=== PATIENT | male | born 1990 | race Two or more races ===

== ENCOUNTER 2021-11-26 23:44 | Emergency (ER) | payer MEDICAID, OTHER ==
[2021-11-27 00:08] VITALS: BP 113/71
== END 2021-11-27 00:30 | disposition left against medical advice (07) ==
LOC: ER 23:44
DX: S81.831A Puncture wound without foreign body, right lower leg, initial encounter (principal); Z53.21 Procedure and treatment not carried out due to patient leaving prior to being seen by health care provider; W22.8XXA Striking against or struck by other objects, initial encounter; Y93.01 Activity, walking, marching and hiking; Y92.89 Other specified places as the place of occurrence of the external cause; Y99.8 Other external cause status

== ENCOUNTER 2021-12-01 01:29 | Emergency (ER) | payer MEDICAID ==
[~2021-12-01] VITALS: Ht 180.3 cm; Wt 77.4 kg
[2021-12-01 08:14] VITALS: BP 119/68
== END 2021-12-01 08:18 | disposition still patient (30) ==
LOC: ER 01:29
DX: R60.0 Localized edema (principal)
CPT/HCPCS: 93971

== ENCOUNTER 2021-12-11 06:21 | Emergency (ER) | payer MEDICAID ==
[~2021-12-11] VITALS: Ht 180.3 cm; Wt 76.7 kg
[2021-12-11 07:36] VITALS: BP 130/76
[2021-12-11] MEDS ORDERED: cefTRIAXone SOD 1,000 MG VL IM ONE (08:30)
[2021-12-11] MEDS ORDERED: SULF800T7 PO (08:36)
[2021-12-11] MEDS ORDERED: IBUP800T27 PO (08:36)
== END 2021-12-11 09:43 | disposition home or self-care (01) ==
LOC: ER 06:21
DX: L97.519 Non-pressure chronic ulcer of other part of right foot with unspecified severity (principal); Z20.822 Contact with and (suspected) exposure to COVID-19
CPT/HCPCS: 36415; 87426; 96372; 99283; J0696

== ENCOUNTER 2021-12-20 09:52 | Emergency (ER) | payer MEDICAID ==
[~2021-12-20] VITALS: Ht 180.3 cm; Wt 90.0 kg
[~2021-12-20 09:52] MED LIST: IBUP800T27 PO; SULF800T7 PO
[2021-12-20 10:02] VITALS: BP 123/77
[2021-12-20 12:02] LABS: Basophils # (auto) 0.1 10 ^3/uL (0-0.2); Basophils % (auto) 0.9 % (0.0-2.0); Eosinophils # (auto) 0.2 10 ^3/uL (0-0.8); Eosinophils % (auto) 2.1 % (0.0-7.0); Hematocrit 39.1 % (41.0-53.0); Hemoglobin 12.9 g/dL (13.5-17.5); Lymphocytes # (auto) 1.7 10 ^3/uL (0.4-5.4); Lymphocytes % (auto) 18.9 % (10.0-50.0); Mean Corpuscular Hemoglobin 29.7 pg (28.0-32.0); Mean Corpuscular Hgb Conc. 33.1 g/dL (32.0-36.0); Mean Corpuscular Volume 89.8 fL (80.0-100.0); Monocytes # (auto) 0.7 10 ^3/uL (0-1.3); Monocytes % (auto) 7.4 % (0.0-12.0); Neutrophils # (auto) 6.3 10 ^3/uL (1.6-8.6); Neutrophils % (auto) 70.7 % (37.0-80.0); Red Blood Cells 4.35 10^6/uL (4.5-5.90); Red Cell Distribution Width 12.6 % (11.8-14.3); White Blood Cell 8.9 10^3/uL (4.4-10.8)
[2021-12-20 12:29] LABS: Albumin 3.3 g/dL (3.4-5.0); Calcium 8.6 mg/dL (8.5-10.1); Potassium 3.5 mmol/L (3.5-5.1)
[2021-12-20 12:38] LABS: Bilirubin, Total 0.7 mg/dL (0.2-1.0); CRP High Sensitivity 4.14 mg/dL (< 0.3); Total Protein 7.4 g/dL (6.4-8.2)
[2021-12-20 13:52] LABS: BUN/Creatinine Ratio 16.7
== END 2021-12-20 17:46 | disposition left against medical advice (07) ==
LOC: ER 09:52
DX: L97.419 Non-pressure chronic ulcer of right heel and midfoot with unspecified severity (principal); Z53.29 Procedure and treatment not carried out because of patient's decision for other reasons
CPT/HCPCS: 36415; 73630; 80053; 83605; 85025; 85652; 86141; 99284; J7030

== ENCOUNTER 2021-12-27 04:02 | Inpatient (IN) | payer MEDICAID ==
[~2021-12-27] VITALS: Ht 180.3 cm; Wt 80.0 kg
[2021-12-27 05:30] LABS: Basophils # (auto) 0.1 10 ^3/uL (0-0.2); Basophils % (auto) 1.3 % (0.0-2.0); Eosinophils # (auto) 0.2 10 ^3/uL (0-0.8); Eosinophils % (auto) 1.5 % (0.0-7.0); Hematocrit 37.6 % (41.0-53.0); Hemoglobin 12.4 g/dL (13.5-17.5); Lymphocytes # (auto) 1.6 10 ^3/uL (0.4-5.4); Lymphocytes % (auto) 15.4 % (10.0-50.0); Mean Corpuscular Hemoglobin 29.9 pg (28.0-32.0); Mean Corpuscular Hgb Conc. 33.1 g/dL (32.0-36.0); Mean Corpuscular Volume 90.5 fL (80.0-100.0); Monocytes # (auto) 0.7 10 ^3/uL (0-1.3); Neutrophils # (auto) 7.8 10 ^3/uL (1.6-8.6); Neutrophils % (auto) 74.8 % (37.0-80.0); Nucleated Red Blood Cells % 0.1 %; Red Blood Cells 4.15 10^6/uL (4.5-5.90); Red Cell Distribution Width 12.6 % (11.8-14.3); White Blood Cell 10.5 10^3/uL (4.4-10.8)
[2021-12-27 05:50] LABS: Albumin 3.3 g/dL (3.4-5.0); Calcium 8.4 mg/dL (8.5-10.1); Potassium 3.8 mmol/L (3.5-5.1)
[2021-12-27 05:58] LABS: BUN/Creatinine Ratio 17.6; Bilirubin, Total 0.5 mg/dL (0.2-1.0); CRP High Sensitivity 2.28 mg/dL (< 0.3); Total Protein 7.1 g/dL (6.4-8.2)
[2021-12-27] MEDS ORDERED: PIPERACILLIN-TAZOB 3.375GM 100 ML IV ONE (08:00)
[2021-12-27] MEDS ORDERED: SODIUM CHLORIDE 0.9% 500 ML IV ONE (08:00)
[2021-12-27] MEDS ORDERED: SODIUM CHLORIDE 0.9% 1,000 ML IV ONE (08:00)
[2021-12-27 12:19] LABS: Urine Bacteria NONE SEEN /hpf (None Seen); Urine Blood Negative /uL (Negative); Urine Mucus FEW (None Seen); Urine Specific Gravity 1.032 (1.001-1.035); Urine WBC <1 /hpf (0 - 3)
[2021-12-27] MEDS ORDERED: DOCUSATE SOD 100 MG CAP PO PRN (12:30)
[2021-12-27] MEDS: SODIUM CHLORIDE 0.9% 1,000 ML IV SCH (12:30)
[2021-12-27] MEDS ORDERED: ACETAMINOPHEN 325 MG TAB PO PRN (12:30)
[2021-12-27] MEDS ORDERED: ONDANSETRON HCL 4 MG/2 ML VIAL IV PRN (12:30)
[2021-12-27] MEDS ORDERED: MORPHINE SULFATE INJ 2 MG/ml SYRG IV PRN (12:30)
[2021-12-27] MEDS: PIPERACILLIN-TAZOB 3.375GM 100 ML IV SCH ×2 (12:30→21:34)
[2021-12-27 16:23] VITALS: BP 116/60
[2021-12-27] MEDS ORDERED: NALOXONE HCL 0.4 MG/ML VIAL IV ONE ×2 (17:30→18:00)
[2021-12-27 18:57] LABS: Amphetamine Screen, Urine POSITIVE (NEGATIVE); Barbiturate Scree,Urine NEGATIVE (NEGATIVE); Benzodiazephine Screen, Urine NEGATIVE (NEGATIVE); Cannabinoid Screen, Urine POSITIVE (NEGATIVE)
[2021-12-27 19:04] LABS: Cocaine Screen, Urine NEGATIVE (NEGATIVE); Opiate Scree,Urine NEGATIVE (NEGATIVE); Phencyclidine Screen, Urine NEGATIVE (NEGATIVE)
[2021-12-27 22:00] VITALS: BP 102/60
[2021-12-28] MEDS: PIPERACILLIN-TAZOB 3.375GM 100 ML IV SCH ×2 (04:40→11:55)
[2021-12-28 05:00] VITALS: BP 117/73
[2021-12-28] MEDS: SODIUM CHLORIDE 0.9% 1,000 ML IV SCH (05:49)
[2021-12-28] MEDS: ENOXAPARIN SOD 40 MG/0.4 ML SYRINGE SC SCH (08:57)
[2021-12-28 09:00] VITALS: BP 105/62
[2021-12-28 14:00] VITALS: BP 111/59
[2021-12-28 17:00] VITALS: BP 108/67
[2021-12-28] MEDS ORDERED: VANCOMYCIN PER PHARMACY 0 MG IV SCH (18:30)
[2021-12-28] MEDS: VANCOMYCIN 1GM/250ML 250 ML IV SCH (21:07)
[2021-12-28 22:00] VITALS: BP 114/69
[2021-12-29 05:00] VITALS: BP 103/61
[2021-12-29] MEDS: VANCOMYCIN 1GM/250ML 250 ML IV SCH (05:56)
[2021-12-29 06:21] LABS: BUN/Creatinine Ratio 29.8; Potassium 4.1 mmol/L (3.5-5.1)
[2021-12-29] MEDS: ENOXAPARIN SOD 40 MG/0.4 ML SYRINGE SC SCH (08:35)
[2021-12-29] MEDS: HYDROcodone-ACET 5/325MG TAB PO PRN ×2 (08:35→14:26)
[2021-12-29] MEDS ORDERED: cefTRIAXone 1GM/50ML D5W 50 ML IV SCH (09:00)
[2021-12-29] MEDS ORDERED: DAKINS QUARTER STR 0.125% (NaHypochlorite) 473 ML TOPICAL SOL TOP SCH (10:00)
[2021-12-29 13:00] VITALS: BP 98/55
== END 2021-12-29 14:40 | disposition left against medical advice (07) | DRG 383 ==
LOC: ER 04:02 → OVERFLOW 12:21 → WEST WING 16:04
PROVIDERS: ADMIT Internal Medicine; ATTEND Internal Medicine
DX: L03.115 Cellulitis of right lower limb (principal); L97.511 Non-pressure chronic ulcer of other part of right foot limited to breakdown of skin; F15.10 Other stimulant abuse, uncomplicated; Z53.29 Procedure and treatment not carried out because of patient's decision for other reasons; Z20.822 Contact with and (suspected) exposure to COVID-19; F12.10 Cannabis abuse, uncomplicated; Z72.0 Tobacco use; Z91.19 Patient's noncompliance with other medical treatment and regimen
CPT/HCPCS: 36415; 71046; 73700; 80048; 80053; 80307; 81001; 83735; 85025; 85652; 86141; 87040; 87077; 87186; 87205; 93005; 93971; 96361; 96365; G0378; J0696; J2543

== ENCOUNTER 2022-01-01 13:27 | Emergency (ER) | payer MEDICAID ==
[2022-01-02] MEDS ORDERED: PERCOT PO (03:46)
[2022-01-02] MEDS ORDERED: DOXY-340 PO (03:46)
[2022-01-02] MEDS ORDERED: CEPH-510 PO (10:13)
[2022-01-02] MEDS ORDERED: CLIN300C8 PO (10:13)
== END 2022-01-01 15:00 | disposition left against medical advice (07) ==
LOC: ER 13:27
DX: R22.41 Localized swelling, mass and lump, right lower limb (principal); Z53.21 Procedure and treatment not carried out due to patient leaving prior to being seen by health care provider

== ENCOUNTER 2022-01-01 15:28 | Emergency (ER) | payer MEDICAID ==
[2022-01-02] MEDS ORDERED: PERCOT PO (03:46)
[2022-01-02] MEDS ORDERED: DOXY-340 PO (03:46)
[2022-01-02] MEDS ORDERED: CEPH-510 PO (10:13)
[2022-01-02] MEDS ORDERED: CLIN300C8 PO (10:13)
== END 2022-01-01 18:47 | disposition left against medical advice (07) ==
LOC: ER 15:36
DX: S81.801D Unspecified open wound, right lower leg, subsequent encounter (principal); Z53.21 Procedure and treatment not carried out due to patient leaving prior to being seen by health care provider; X58.XXXD Exposure to other specified factors, subsequent encounter

== ENCOUNTER 2022-01-01 22:00 | Emergency (ER) | payer MEDICAID ==
[~2022-01-01] VITALS: Ht 180.3 cm; Wt 74.3 kg
[2022-01-02 03:21] VITALS: BP 109/70
[2022-01-02] MEDS ORDERED: PERCOT PO (03:46)
[2022-01-02] MEDS ORDERED: DOXY-340 PO (03:46)
[2022-01-02] MEDS ORDERED: CEPH-510 PO (10:13)
[2022-01-02] MEDS ORDERED: CLIN300C8 PO (10:13)
== END 2022-01-02 04:24 | disposition home or self-care (01) ==
LOC: ER 22:00
DX: L03.115 Cellulitis of right lower limb (principal); F12.10 Cannabis abuse, uncomplicated; F15.10 Other stimulant abuse, uncomplicated

== ENCOUNTER 2022-01-02 08:00 | Emergency (ER) | payer MEDICAID ==
[~2022-01-02] VITALS: Ht 180.3 cm; Wt 92.0 kg
[~2022-01-02 08:00] MED LIST changes: +DOXY-340 PO; +PERCOT PO
[2022-01-02 09:49] VITALS: BP 136/81
[2022-01-02] MEDS ORDERED: CEPH-510 PO (10:13)
[2022-01-02] MEDS ORDERED: CLIN300C8 PO (10:13)
[2022-01-02] MEDS ORDERED: cefTRIAXone SOD 1,000 MG VL IM ONE (10:15)
== END 2022-01-02 10:43 | disposition home or self-care (01) ==
LOC: ER 08:00
DX: L97.519 Non-pressure chronic ulcer of other part of right foot with unspecified severity (principal); L03.115 Cellulitis of right lower limb; F15.10 Other stimulant abuse, uncomplicated; F12.10 Cannabis abuse, uncomplicated; Z59.00 Homelessness unspecified; Z79.2 Long term (current) use of antibiotics; Z79.1 Long term (current) use of non-steroidal anti-inflammatories (NSAID); Z79.899 Other long term (current) drug therapy
CPT/HCPCS: 96372; 99283; J0696

== ENCOUNTER 2022-01-06 02:27 | Emergency (ER) | payer MEDICAID ==
[~2022-01-06] VITALS: Ht 180.3 cm; Wt 70.0 kg
[~2022-01-06 02:27] MED LIST changes: +CEPH-510 PO; +CLIN300C8 PO
[2022-01-06 07:47] LABS: Albumin 3.1 g/dL (3.4-5.0); Calcium 8.5 mg/dL (8.5-10.1); Potassium 3.9 mmol/L (3.5-5.1)
[2022-01-06 07:51] LABS: BUN/Creatinine Ratio 17.6; Bilirubin, Total 0.7 mg/dL (0.2-1.0); Total Protein 7.4 g/dL (6.4-8.2)
[2022-01-06 08:05] LABS: Basophils # (auto) 0.1 10 ^3/uL (0-0.2); Basophils % (auto) 0.6 % (0.0-2.0); Eosinophils # (auto) 0.2 10 ^3/uL (0-0.8); Eosinophils % (auto) 2.1 % (0.0-7.0); Hematocrit 37.2 % (41.0-53.0); Hemoglobin 12.3 g/dL (13.5-17.5); Lymphocytes # (auto) 1.5 10 ^3/uL (0.4-5.4); Lymphocytes % (auto) 13.8 % (10.0-50.0); Mean Corpuscular Hemoglobin 29.7 pg (28.0-32.0); Mean Corpuscular Hgb Conc. 33.1 g/dL (32.0-36.0); Mean Corpuscular Volume 89.7 fL (80.0-100.0); Monocytes % (auto) 8.6 % (0.0-12.0); Neutrophils # (auto) 8.4 10 ^3/uL (1.6-8.6); Neutrophils % (auto) 74.9 % (37.0-80.0); Nucleated Red Blood Cells % 0.1 %; Red Blood Cells 4.15 10^6/uL (4.5-5.90); Red Cell Distribution Width 12.9 % (11.8-14.3); White Blood Cell 11.2 10^3/uL (4.4-10.8)
[2022-01-06 10:04] LABS: Urine Bacteria FEW /hpf (None Seen); Urine Blood Negative /uL (Negative); Urine Mucus MODERATE (None Seen); Urine WBC 1 /hpf (0 - 3)
[2022-01-06 12:00] VITALS: BP 128/66
[2022-01-06] MEDS ORDERED: NAP500T PO (12:15)
[2022-01-06] MEDS ORDERED: GABA300C10 PO (12:15)
[2022-01-06] MEDS ORDERED: TRAM50TA2 PO (12:15)
== END 2022-01-06 12:27 | disposition home or self-care (01) ==
LOC: ER 02:27 → EDBD 02:27 → ER 12:27
DX: L97.519 Non-pressure chronic ulcer of other part of right foot with unspecified severity (principal); I89.0 Lymphedema, not elsewhere classified; F12.10 Cannabis abuse, uncomplicated; F15.10 Other stimulant abuse, uncomplicated; Z59.00 Homelessness unspecified
CPT/HCPCS: 36415; 80053; 81001; 85025

== ENCOUNTER 2022-01-19 07:29 | Emergency (ER) | payer MEDICAID ==
[~2022-01-19] VITALS: Ht 180.3 cm; Wt 79.5 kg
[~2022-01-19 07:29] MED LIST changes: +GABA300C10 PO; +NAP500T PO; +TRAM50TA2 PO
[2022-01-19 08:52] LABS: Hematocrit 37.9 % (41.0-53.0); Hemoglobin 12.8 g/dL (13.5-17.5); Mean Corpuscular Hemoglobin 29.7 pg (28.0-32.0); Mean Corpuscular Hgb Conc. 33.7 g/dL (32.0-36.0); Red Blood Cells 4.31 10^6/uL (4.5-5.90); White Blood Cell 9.2 10^3/uL (4.4-10.8)
[2022-01-19 08:57] LABS: Basophils % (manual) 0 (0.0-2.0); Blast Cells 0; Metamyelocytes % 0; Myelocytes % 0; Promyelocytes % 0; Reactive Lymphocytes 0
[2022-01-19 09:05] LABS: Albumin 3.3 g/dL (3.4-5.0); Calcium 8.7 mg/dL (8.5-10.1); Potassium 3.7 mmol/L (3.5-5.1)
[2022-01-19 09:08] LABS: BUN/Creatinine Ratio 18.4; Bilirubin, Total 0.4 mg/dL (0.2-1.0); Total Protein 7.8 g/dL (6.4-8.2)
[2022-01-19 09:33] LABS: Band Neutrophils % (manual) 1; Eosinophils % (manual) 4 (0-7); Lymphocytes % (manual) 11 (10.0-50.0); Monocytes % (manual) 8 (0-12)
[2022-01-19] MEDS ORDERED: cefTRIAXone SOD 1,000 MG VL IM ONE (09:45)
[2022-01-19 10:09] VITALS: BP 122/74
== END 2022-01-19 10:14 | disposition home or self-care (01) ==
LOC: ER 07:29
DX: I89.0 Lymphedema, not elsewhere classified (principal)
CPT/HCPCS: 36415; 80053; 82962; 85007; 85027; 96372; 99283; J0696

== ENCOUNTER 2022-01-30 22:13 | Inpatient (IN) | payer MEDICAID ==
[~2022-01-30] VITALS: Ht 180.3 cm; Wt 74.0 kg
[2022-01-30] MEDS ORDERED: IOHEXOL 350 MG/ML 100ML IJ ONE (23:54)
[2022-01-31 00:01] LABS: Basophils # (auto) 0.1 10 ^3/uL (0-0.2); Eosinophils # (auto) 0.3 10 ^3/uL (0-0.8); Lymphocytes # (auto) 1.8 10 ^3/uL (0.4-5.4); Neutrophils # (auto) 8.2 10 ^3/uL (1.6-8.6)
[2022-01-31 00:02] LABS: Basophils % (auto) 0.8 % (0.0-2.0); Eosinophils % (auto) 3.1 % (0.0-7.0); Hematocrit 37.3 % (41.0-53.0); Hemoglobin 12.5 g/dL (13.5-17.5); Lymphocytes % (auto) 15.9 % (10.0-50.0); Mean Corpuscular Hemoglobin 29.2 pg (28.0-32.0); Mean Corpuscular Hgb Conc. 33.6 g/dL (32.0-36.0); Mean Corpuscular Volume 86.9 fL (80.0-100.0); Monocytes # (auto) 0.7 10 ^3/uL (0-1.3); Monocytes % (auto) 6.7 % (0.0-12.0); Neutrophils % (auto) 73.5 % (37.0-80.0); Red Blood Cells 4.29 10^6/uL (4.5-5.90); Red Cell Distribution Width 12.8 % (11.8-14.3); White Blood Cell 11.1 10^3/uL (4.4-10.8)
[2022-01-31 00:22] LABS: Albumin 3.4 g/dL (3.4-5.0); Calcium 8.5 mg/dL (8.5-10.1); Potassium 4.1 mmol/L (3.5-5.1)
[2022-01-31 00:58] LABS: BUN/Creatinine Ratio 20.8; Bilirubin, Total 0.4 mg/dL (0.2-1.0); CRP High Sensitivity 3.85 mg/dL (< 0.3); Total Protein 7.5 g/dL (6.4-8.2)
[2022-01-31] MEDS ORDERED: VANCOMYCIN 1GM/250ML 250 ML IV ONE (05:45)
[2022-01-31] MEDS: PIPERACILLIN-TAZO 4.5GM 100 ML IV ONE ×2 (06:46→07:57)
[2022-01-31 16:44] LABS: Basophils # (auto) 0.1 10 ^3/uL (0-0.2); Basophils % (auto) 0.8 % (0.0-2.0); Eosinophils # (auto) 0.3 10 ^3/uL (0-0.8); Eosinophils % (auto) 4.3 % (0.0-7.0); Hematocrit 38.6 % (41.0-53.0); Hemoglobin 12.9 g/dL (13.5-17.5); Lymphocytes # (auto) 1.4 10 ^3/uL (0.4-5.4); Lymphocytes % (auto) 20.9 % (10.0-50.0); Mean Corpuscular Hemoglobin 29.1 pg (28.0-32.0); Mean Corpuscular Hgb Conc. 33.4 g/dL (32.0-36.0); Mean Corpuscular Volume 87.3 fL (80.0-100.0); Monocytes # (auto) 0.5 10 ^3/uL (0-1.3); Monocytes % (auto) 7.1 % (0.0-12.0); Neutrophils # (auto) 4.6 10 ^3/uL (1.6-8.6); Neutrophils % (auto) 66.9 % (37.0-80.0); Nucleated Red Blood Cells % 0.1 %; Red Blood Cells 4.42 10^6/uL (4.5-5.90); Red Cell Distribution Width 13.2 % (11.8-14.3); White Blood Cell 6.8 10^3/uL (4.4-10.8)
[2022-01-31 17:13] LABS: Albumin 2.8 g/dL (3.4-5.0); Calcium 8.3 mg/dL (8.5-10.1); Potassium 4.4 mmol/L (3.5-5.1)
[2022-01-31 17:19] LABS: BUN/Creatinine Ratio 18.9; Bilirubin, Total 0.4 mg/dL (0.2-1.0); Total Protein 6.4 g/dL (6.4-8.2)
[2022-01-31 17:41] LABS: INR 1.03 (0.9-1.15); Partial Thromboplastin Time 37.1 sec (24.6-33.4)
[2022-01-31] MEDS ORDERED: ONDANSETRON HCL 4 MG/2 ML VIAL IV PRN (19:00)
[2022-01-31] MEDS ORDERED: DOCUSATE SOD 100 MG CAP PO PRN (19:00)
[2022-01-31] MEDS ORDERED: ACETAMINOPHEN 325 MG TAB PO PRN (19:00)
[2022-01-31] MEDS ORDERED: VANCOMYCIN PER PHARMACY 0 MG IV SCH (19:00)
[2022-01-31] MEDS ORDERED: HYDROcodone-ACET 5/325MG TAB PO PRN (19:00)
[2022-01-31] MEDS: VANCOMYCIN 1GM/250ML 250 ML IV SCH (20:19)
[2022-01-31 21:52] VITALS: BP 128/78
[2022-01-31] MEDS: DAKINS HALF STR 0.25% (NaHypochlorite) 473 ML TOPICAL SOL TOP SCH (22:37)
[2022-01-31] MEDS: PIPERACILLIN-TAZOB 3.375GM 100 ML IV SCH (23:30)
[2022-02-01] MEDS: VANCOMYCIN 1GM/250ML 250 ML IV SCH ×3 (03:40→22:44)
[2022-02-01 05:14] VITALS: BP 117/72
[2022-02-01 05:44] LABS: Basophils # (auto) 0.1 10 ^3/uL (0-0.2); Eosinophils # (auto) 0.4 10 ^3/uL (0-0.8); Eosinophils % (auto) 6.1 % (0.0-7.0); Hematocrit 38.8 % (41.0-53.0); Hemoglobin 13.1 g/dL (13.5-17.5); Lymphocytes # (auto) 1.6 10 ^3/uL (0.4-5.4); Lymphocytes % (auto) 27.7 % (10.0-50.0); Mean Corpuscular Hemoglobin 29.5 pg (28.0-32.0); Mean Corpuscular Hgb Conc. 33.8 g/dL (32.0-36.0); Mean Corpuscular Volume 87.4 fL (80.0-100.0); Monocytes # (auto) 0.4 10 ^3/uL (0-1.3); Monocytes % (auto) 7.2 % (0.0-12.0); Neutrophils # (auto) 3.5 10 ^3/uL (1.6-8.6); Red Blood Cells 4.43 10^6/uL (4.5-5.90); White Blood Cell 5.9 10^3/uL (4.4-10.8)
[2022-02-01] MEDS: PIPERACILLIN-TAZOB 3.375GM 100 ML IV SCH ×3 (05:44→22:44)
[2022-02-01 05:56] LABS: INR 1.02 (0.9-1.15); Partial Thromboplastin Time 33.9 sec (24.6-33.4)
[2022-02-01 05:58] LABS: Calcium 8.2 mg/dL (8.5-10.1); Potassium 4.4 mmol/L (3.5-5.1)
[2022-02-01 06:04] LABS: BUN/Creatinine Ratio 22.9
[2022-02-01 09:00] VITALS: BP 100/57
[2022-02-01] MEDS ORDERED: PANTOPRAZOLE 40 MG/10 ML VIAL INJ IV SCH (10:00)
[2022-02-01 13:00] VITALS: BP 100/53
[2022-02-01 17:00] VITALS: BP 115/65
[2022-02-01 22:00] VITALS: BP 94/49
[2022-02-01] MEDS: DAKINS HALF STR 0.25% (NaHypochlorite) 473 ML TOPICAL SOL TOP SCH ×2 (22:44→22:46)
[2022-02-02 05:00] VITALS: BP 91/44
[2022-02-02] MEDS: VANCOMYCIN 1GM/250ML 250 ML IV SCH ×3 (05:05→23:01)
[2022-02-02 05:50] LABS: Basophils # (auto) 0.1 10 ^3/uL (0-0.2); Eosinophils % (auto) 5.1 % (0.0-7.0); Hemoglobin 13.9 g/dL (13.5-17.5); Monocytes # (auto) 0.5 10 ^3/uL (0-1.3); Nucleated Red Blood Cells % 0.1 %; White Blood Cell 6.9 10^3/uL (4.4-10.8)
[2022-02-02 05:54] LABS: Basophils % (auto) 0.8 % (0.0-2.0); Eosinophils # (auto) 0.3 10 ^3/uL (0-0.8); Hematocrit 40.6 % (41.0-53.0); Lymphocytes # (auto) 1.9 10 ^3/uL (0.4-5.4); Lymphocytes % (auto) 27.1 % (10.0-50.0); Mean Corpuscular Hgb Conc. 34.2 g/dL (32.0-36.0); Mean Corpuscular Volume 87.7 fL (80.0-100.0); Monocytes % (auto) 6.7 % (0.0-12.0); Neutrophils # (auto) 4.1 10 ^3/uL (1.6-8.6); Neutrophils % (auto) 60.3 % (37.0-80.0); Red Blood Cells 4.63 10^6/uL (4.5-5.90)
[2022-02-02 06:06] LABS: INR 0.98 (0.9-1.15); Partial Thromboplastin Time 33.6 sec (24.6-33.4)
[2022-02-02 06:10] LABS: BUN/Creatinine Ratio 23.3; Calcium 8.3 mg/dL (8.5-10.1); Potassium 4.2 mmol/L (3.5-5.1)
[2022-02-02] MEDS: PIPERACILLIN-TAZOB 3.375GM 100 ML IV SCH ×3 (06:34→17:41)
[2022-02-02 08:13] VITALS: BP 120/73
[2022-02-02] MEDS: FAMOTIDINE 20 MG TAB PO SCH (10:00)
[2022-02-02] MEDS: DAKINS HALF STR 0.25% (NaHypochlorite) 473 ML TOPICAL SOL TOP SCH ×2 (10:00→22:00)
[2022-02-02] MEDS ORDERED: ceFAZolin 1GM/50ML 100 ML IV ONE (11:54)
[2022-02-02] MEDS ORDERED: BUPIVACAINE HCL 0.25% P/F 10 ML VIAL ONE (12:11)
[2022-02-02] MEDS ORDERED: LIDOCAINE 1%HCL (LOCAL ANESTH) 10 ML MDV ONE (12:11)
[2022-02-02] MEDS ORDERED: MIDAZOLAM HCL 2MG/2ML 2ml VIAL (1mg/ml) ONE (12:21)
[2022-02-02] MEDS ORDERED: fentaNYL CITRATE 100 MCG/2 ML VL ONE (12:21)
[2022-02-02] MEDS ORDERED: PROPOFOL 10 MG/ML 20 ML IV ONE (12:56)
[2022-02-02 13:05] VITALS: BP 122/52
[2022-02-02 17:04] VITALS: BP 106/68
[2022-02-02 23:02] VITALS: BP 93/43
[2022-02-03] MEDS: PIPERACILLIN-TAZOB 3.375GM 100 ML IV SCH ×3 (01:10→12:30)
[2022-02-03] MEDS: VANCOMYCIN 1GM/250ML 250 ML IV SCH ×2 (06:39→12:39)
[2022-02-03 08:49] VITALS: BP 100/69
[2022-02-03] MEDS: DAKINS HALF STR 0.25% (NaHypochlorite) 473 ML TOPICAL SOL TOP SCH (12:18)
[2022-02-03] MEDS: FAMOTIDINE 20 MG TAB PO SCH (12:18)
[2022-02-03 12:33] VITALS: BP 117/77
[2022-02-03] MEDS ORDERED: IBUP800T27 PO (16:02)
[2022-02-03] MEDS ORDERED: TRAM50TA2 PO (16:02)
[2022-02-03] MEDS ORDERED: GABA300C10 PO (16:02)
[2022-02-03] MEDS ORDERED: LEVO750T64 PO (16:02)
[2022-02-03 16:39] VITALS: BP 102/69
[2022-02-03] MEDS ORDERED: ASPI-325 PO (17:32)
== END 2022-02-03 18:22 | disposition home health service (06) | DRG 380 ==
LOC: ER 22:16 → OVERFLOW 01-31 19:07 → WEST WING 01-31 19:46
PROVIDERS: ADMIT Nurse Practitioner Family; ATTEND Hospitalist
PROC: 0JBQ0ZZ Excision of Right Foot Subcutaneous Tissue and Fascia, Open Approach (ICD-10-PCS; principal; 2022-02-02 12:19)
DX: L97.519 Non-pressure chronic ulcer of other part of right foot with unspecified severity (principal); I82.511 Chronic embolism and thrombosis of right femoral vein; L03.115 Cellulitis of right lower limb; L97.419 Non-pressure chronic ulcer of right heel and midfoot with unspecified severity; F12.10 Cannabis abuse, uncomplicated; L02.611 Cutaneous abscess of right foot; F15.10 Other stimulant abuse, uncomplicated; Z20.822 Contact with and (suspected) exposure to COVID-19; J43.9 Emphysema, unspecified; I89.0 Lymphedema, not elsewhere classified; Z59.00 Homelessness unspecified; Z79.899 Other long term (current) drug therapy; I82.531 Chronic embolism and thrombosis of right popliteal vein; B96.5 Pseudomonas (aeruginosa) (mallei) (pseudomallei) as the cause of diseases classified elsewhere
CPT/HCPCS: 36415; 71045; 80048; 80053; 80202; 83605; 83880; 84484; 85025; 85610; 85652; 85730; 86141; 87070; 87075; 87077; 87081; 87186; 87205; 93005; 93926; 93971; 96365; 96366; 96367; C9113; G0378; J0690; J2001; J2250; J2543; J2704; J3490

== ENCOUNTER 2022-02-06 06:58 | Emergency (ER) | payer MEDICAID ==
[~2022-02-06] VITALS: Ht 180.3 cm; Wt 77.2 kg
[~2022-02-06 06:58] MED LIST changes: +ASPI-325 PO; -CEPH-510 PO; -CLIN300C8 PO; -DOXY-340 PO; +LEVO750T64 PO; -NAP500T PO; -PERCOT PO; -SULF800T7 PO
[2022-02-06 10:11] VITALS: BP 131/87
[2022-02-06] MEDS ORDERED: cefTRIAXone SOD 1,000 MG VL IM ONE (10:30)
[2022-02-06] MEDS ORDERED: HYDROcodone-ACET 5/325MG TAB PO ONE (10:30)
[2022-02-06] MEDS ORDERED: LEVO750T64 PO (10:33)
[2022-02-06] MEDS ORDERED: IBUP800T27 PO (10:33)
[2022-02-06] MEDS ORDERED: ONDANSETRON ODT 4 MG TAB PO ONE (11:00)
== END 2022-02-06 11:21 | disposition left against medical advice (07) ==
LOC: EDBD 06:58 → ER 06:58
DX: L02.91 Cutaneous abscess, unspecified (principal); F15.10 Other stimulant abuse, uncomplicated; F12.10 Cannabis abuse, uncomplicated
CPT/HCPCS: 96372; 99283; J0696; Q0162

== ENCOUNTER 2022-02-07 01:14 | Emergency (ER) | payer MEDICAID ==
[~2022-02-07] VITALS: Ht 170.2 cm; Wt 86.0 kg
[2022-02-07 03:09] VITALS: BP 111/56
[2022-02-07 05:20] LABS: Basophils # (auto) 0.1 10 ^3/uL (0-0.2); Basophils % (auto) 0.8 % (0.0-2.0); Eosinophils # (auto) 0.7 10 ^3/uL (0-0.8); Eosinophils % (auto) 5.1 % (0.0-7.0); Hematocrit 36.7 % (41.0-53.0); Hemoglobin 11.9 g/dL (13.5-17.5); Lymphocytes % (auto) 13.8 % (10.0-50.0); Mean Corpuscular Hemoglobin 28.3 pg (28.0-32.0); Mean Corpuscular Hgb Conc. 32.3 g/dL (32.0-36.0); Mean Corpuscular Volume 87.8 fL (80.0-100.0); Monocytes # (auto) 0.9 10 ^3/uL (0-1.3); Monocytes % (auto) 6.6 % (0.0-12.0); Neutrophils # (auto) 10.5 10 ^3/uL (1.6-8.6); Neutrophils % (auto) 73.7 % (37.0-80.0); Red Blood Cells 4.19 10^6/uL (4.5-5.90); Red Cell Distribution Width 13.3 % (11.8-14.3); White Blood Cell 14.2 10^3/uL (4.4-10.8)
[2022-02-07 05:33] LABS: Albumin 3.2 g/dL (3.4-5.0); Calcium 8.3 mg/dL (8.5-10.1); Potassium 3.9 mmol/L (3.5-5.1)
[2022-02-07 05:41] LABS: BUN/Creatinine Ratio 29.1; Bilirubin, Total 0.6 mg/dL (0.2-1.0); CRP High Sensitivity 9.36 mg/dL (< 0.3); Total Protein 7.1 g/dL (6.4-8.2)
[2022-02-07] MEDS ORDERED: METOCLOPRAMIDE HCL 5MG/ml INJ 2ml VIAL IV ONE (09:00)
[2022-02-07] MEDS ORDERED: SODIUM CHLORIDE 0.9% 1,000 ML IV ONE (09:00)
[2022-02-07] MEDS ORDERED: MORPHINE SULFATE INJ 2 MG/ml SYRG IV ONE ×2 (09:00)
[2022-02-07] MEDS ORDERED: VANCOMYCIN 1GM/250ML 250 ML IV ONE (11:30)
[2022-02-07] MEDS ORDERED: PIPERACILLIN-TAZOB 3.375GM 100 ML IV ONE (11:30)
== END 2022-02-07 17:42 | disposition short-term general hospital (02) ==
LOC: ER 01:19
DX: L97.519 Non-pressure chronic ulcer of other part of right foot with unspecified severity (principal); M72.6 Necrotizing fasciitis; E11.9 Type 2 diabetes mellitus without complications; Z79.1 Long term (current) use of non-steroidal anti-inflammatories (NSAID); Z79.82 Long term (current) use of aspirin; Z79.2 Long term (current) use of antibiotics; Z79.899 Other long term (current) drug therapy
CPT/HCPCS: 36415; 73700; 80053; 82550; 83605; 85025; 85652; 86141

== ENCOUNTER 2022-02-07 23:07 | Emergency (ER) | payer MEDICAID ==
[~2022-02-07] VITALS: Ht 177.8 cm; Wt 75.0 kg
[2022-02-08 00:18] VITALS: BP 105/77
== END 2022-02-08 09:41 | disposition left against medical advice (07) ==
LOC: ER 23:07
DX: M79.671 Pain in right foot (principal); Z53.21 Procedure and treatment not carried out due to patient leaving prior to being seen by health care provider

== ENCOUNTER 2022-02-10 01:19 | Emergency (ER) | payer MEDICAID ==
[~2022-02-10] VITALS: Ht 180.3 cm; Wt 75.4 kg
[2022-02-10 02:41] VITALS: BP 113/75
== END 2022-02-10 06:57 | disposition left against medical advice (07) ==
LOC: ER 01:19
DX: M79.604 Pain in right leg (principal); R22.41 Localized swelling, mass and lump, right lower limb; Z53.21 Procedure and treatment not carried out due to patient leaving prior to being seen by health care provider

== ENCOUNTER 2022-02-10 08:16 | Emergency (ER) | payer MEDICAID ==
[~2022-02-10] VITALS: Ht 180.3 cm; Wt 75.0 kg
[2022-02-10 08:39] VITALS: BP 116/65
[2022-02-10 09:00] LABS: Basophils # (auto) 0 10 ^3/uL (0-0.2); Basophils % (auto) 0.3 % (0.0-2.0); Eosinophils # (auto) 0.2 10 ^3/uL (0-0.8); Eosinophils % (auto) 1.9 % (0.0-7.0); Hematocrit 31.8 % (41.0-53.0); Hemoglobin 10.8 g/dL (13.5-17.5); Lymphocytes # (auto) 1.3 10 ^3/uL (0.4-5.4); Lymphocytes % (auto) 11.6 % (10.0-50.0); Mean Corpuscular Hemoglobin 29.4 pg (28.0-32.0); Mean Corpuscular Hgb Conc. 34.1 g/dL (32.0-36.0); Mean Corpuscular Volume 86.3 fL (80.0-100.0); Monocytes # (auto) 0.7 10 ^3/uL (0-1.3); Monocytes % (auto) 6.7 % (0.0-12.0); Neutrophils # (auto) 8.7 10 ^3/uL (1.6-8.6); Neutrophils % (auto) 79.5 % (37.0-80.0); Red Blood Cells 3.68 10^6/uL (4.5-5.90); Red Cell Distribution Width 13.1 % (11.8-14.3)
[2022-02-10 09:20] LABS: Albumin 2.7 g/dL (3.4-5.0); Potassium 3.4 mmol/L (3.5-5.1)
[2022-02-10 09:23] LABS: BUN/Creatinine Ratio 18.2; Bilirubin, Total 0.5 mg/dL (0.2-1.0); Total Protein 6.7 g/dL (6.4-8.2)
== END 2022-02-10 09:55 | disposition left against medical advice (07) ==
LOC: ER 08:16
DX: M79.671 Pain in right foot (principal); R22.41 Localized swelling, mass and lump, right lower limb; Z53.21 Procedure and treatment not carried out due to patient leaving prior to being seen by health care provider
CPT/HCPCS: 36415; 80053; 83605; 85025

== ENCOUNTER 2022-02-10 15:34 | Emergency (ER) | payer MEDICAID ==
[~2022-02-10] VITALS: Ht 177.8 cm; Wt 80.0 kg
[2022-02-10 17:05] VITALS: BP 118/72
== END 2022-02-10 17:14 | disposition left against medical advice (07) ==
LOC: EDBD 15:34 → ER 15:36
DX: M79.661 Pain in right lower leg (principal); Z53.21 Procedure and treatment not carried out due to patient leaving prior to being seen by health care provider

== ENCOUNTER 2022-02-11 13:47 | Emergency (ER) | payer MEDICAID ==
[~2022-02-11] VITALS: Ht 180.3 cm; Wt 54.3 kg
[2022-02-11 18:36] LABS: Eosinophils # (auto) 0.2 10 ^3/uL (0-0.8); Red Cell Distribution Width 13.3 % (11.8-14.3)
[2022-02-11 18:37] LABS: Basophils # (auto) 0 10 ^3/uL (0-0.2); Basophils % (auto) 0.4 % (0.0-2.0); Eosinophils % (auto) 1.9 % (0.0-7.0); Hematocrit 35.6 % (41.0-53.0); Hemoglobin 11.7 g/dL (13.5-17.5); Lymphocytes # (auto) 1.5 10 ^3/uL (0.4-5.4); Lymphocytes % (auto) 12.6 % (10.0-50.0); Mean Corpuscular Hemoglobin 28.7 pg (28.0-32.0); Mean Corpuscular Hgb Conc. 32.8 g/dL (32.0-36.0); Mean Corpuscular Volume 87.4 fL (80.0-100.0); Monocytes # (auto) 0.9 10 ^3/uL (0-1.3); Monocytes % (auto) 7.6 % (0.0-12.0); Neutrophils # (auto) 9.2 10 ^3/uL (1.6-8.6); Neutrophils % (auto) 77.5 % (37.0-80.0); Red Blood Cells 4.07 10^6/uL (4.5-5.90); White Blood Cell 11.9 10^3/uL (4.4-10.8)
[2022-02-11 18:54] LABS: Albumin 3.1 g/dL (3.4-5.0); Calcium 8.7 mg/dL (8.5-10.1); Potassium 3.3 mmol/L (3.5-5.1)
[2022-02-11 18:57] LABS: BUN/Creatinine Ratio 13.1; Bilirubin, Total 0.4 mg/dL (0.2-1.0); Total Protein 7.8 g/dL (6.4-8.2)
[2022-02-11 22:32] LABS: Urine Bacteria FEW /hpf (None Seen); Urine Blood Negative /uL (Negative); Urine Mucus FEW (None Seen); Urine Specific Gravity 1.032 (1.001-1.035); Urine WBC 2 /hpf (0 - 3)
[2022-02-11 22:52] LABS: Amphetamine Screen, Urine POSITIVE (NEGATIVE); Barbiturate Scree,Urine NEGATIVE (NEGATIVE); Benzodiazephine Screen, Urine NEGATIVE (NEGATIVE); Cocaine Screen, Urine NEGATIVE (NEGATIVE); Phencyclidine Screen, Urine NEGATIVE (NEGATIVE)
[2022-02-11 22:59] LABS: Cannabinoid Screen, Urine POSITIVE (NEGATIVE); Opiate Scree,Urine NEGATIVE (NEGATIVE)
[2022-02-12] MEDS ORDERED: CEPH-510 PO (09:09)
[2022-02-12] MEDS ORDERED: ENOXAPARIN SOD 60 MG/0.6 ML SYRINGE SC ONE ×2 (10:30→13:30)
[2022-02-12 12:46] VITALS: BP 108/62
== END 2022-02-12 15:16 | disposition home or self-care (01) ==
LOC: ER 13:47
DX: D72.829 Elevated white blood cell count, unspecified (principal); F12.10 Cannabis abuse, uncomplicated; F15.10 Other stimulant abuse, uncomplicated; E11.9 Type 2 diabetes mellitus without complications; Z79.899 Other long term (current) drug therapy
CPT/HCPCS: 36415; 80053; 80307; 81001; 83605; 85025; 87040; 96372; 99283; J1650

== ENCOUNTER 2022-04-05 01:37 | Emergency (ER) | payer MEDICAID ==
[~2022-04-05] VITALS: Ht 177.8 cm; Wt 140.0 kg
[~2022-04-05 01:37] MED LIST changes: +CEPH-510 PO
== END 2022-04-05 13:08 | disposition left against medical advice (07) ==
LOC: ER 01:37 → EDBD 01:37 → ER 13:08
DX: T82.524A Displacement of infusion catheter, initial encounter (principal); Y92.89 Other specified places as the place of occurrence of the external cause; Z53.21 Procedure and treatment not carried out due to patient leaving prior to being seen by health care provider

== ENCOUNTER 2023-02-25 02:19 | Emergency (ER) | payer MEDICAID ==
[~2023-02-25] VITALS: Ht 180.3 cm; Wt 81.8 kg
[~2023-02-25 02:19] MED LIST changes: +GABA-1250 PO; -GABA300C10 PO; +IBUP-1456 PO; -IBUP800T27 PO; +LEVO750T40 PO; -LEVO750T64 PO
[2023-02-25 03:04] LABS: Basophils # (auto) 0.1 10 ^3/uL (0-0.2); Basophils % (auto) 0.5 % (0.0-2.0); Eosinophils # (auto) 0.2 10 ^3/uL (0-0.8); Eosinophils % (auto) 1.8 % (0.0-7.0); Hematocrit 45.5 % (41.0-53.0); Hemoglobin 15.8 g/dL (13.5-17.5); Lymphocytes # (auto) 2.7 10 ^3/uL (0.4-5.4); Lymphocytes % (auto) 20.3 % (10.0-50.0); Mean Corpuscular Hemoglobin 30.1 pg (28.0-32.0); Mean Corpuscular Hgb Conc. 34.7 g/dL (32.0-36.0); Mean Corpuscular Volume 86.6 fL (80.0-100.0); Monocytes # (auto) 1.1 10 ^3/uL (0-1.3); Monocytes % (auto) 8.3 % (0.0-12.0); Neutrophils # (auto) 9.1 10 ^3/uL (1.6-8.6); Neutrophils % (auto) 69.1 % (37.0-80.0); Nucleated Red Blood Cells % 0.1 %; Red Blood Cells 5.26 10^6/uL (4.5-5.90); Red Cell Distribution Width 13.8 % (11.8-14.3); White Blood Cell 13.2 10^3/uL (4.4-10.8)
[2023-02-25 03:38] LABS: Alanine Aminotransferase 14 U/L (7-40); Albumin 5.3 g/dL (3.2-4.8); Alkaline Phosphatase 117 U/L (46-116); Anion Gap 5 (5-15); Aspartate Aminotransferase 13 U/L (13-40); BUN/Creatinine Ratio 21.9 (10.0-20.0); Blood Urea Nitrogen 21 mg/dL (9-23); Calcium 9.9 mg/dL (8.7-10.4); Carbon Dioxide 30 mmol/L (20-30); Chloride 102 mmol/L (98-107); Glucose 83 mg/dL (74-106); Sodium 137 mmol/L (136-145)
[2023-02-25 03:39] LABS: Bilirubin, Total 0.8 mg/dL (0.2-1.0); Total Protein 8.8 g/dL (5.7-8.2)
[2023-02-25 04:06] LABS: Erythrocyte Sedimentation Rate 16 mm/hr (0-20)
[2023-02-25 05:39] LABS: CRP High Sensitivity 2.85 mg/dL (<1.0)
[2023-02-25 06:29] VITALS: BP 116/82; PULSE 92; RESP 18; TEMP 98.4; O2SAT 98
== END 2023-02-25 09:40 | disposition left against medical advice (07) ==
LOC: ER 02:19
DX: M79.671 Pain in right foot (principal); Z53.21 Procedure and treatment not carried out due to patient leaving prior to being seen by health care provider
CPT/HCPCS: 36415; 73700; 80053; 83605; 85025; 85652; 86141

== ENCOUNTER 2023-08-15 23:14 | Inpatient (IN) | payer MEDICAID ==
[~2023-08-15] VITALS: Ht 180.3 cm; Wt 86.4 kg
[2023-08-16] MEDS ORDERED: VANCOMYCIN HCL 1000 MG VL IR ONE (01:15)
[2023-08-16] MEDS: HYDROcodone-ACET 5/325MG TAB PO ONE (01:15)
[2023-08-16 02:05] LABS: Alanine Aminotransferase 21 U/L (7-40); Albumin 4.7 g/dL (3.2-4.8); Alkaline Phosphatase 111 U/L (46-116); Anion Gap 6 (5-15); Aspartate Aminotransferase 41 U/L (13-40); BUN/Creatinine Ratio 22.7 (10.0-20.0); Basophils # (auto) 0.1 10 ^3/uL (0-0.2); Basophils % (auto) 0.6 % (0.0-2.0); Bilirubin, Total 1.1 mg/dL (0.2-1.0); Blood Urea Nitrogen 22 mg/dL (9-23); Calcium 9.8 mg/dL (8.7-10.4); Carbon Dioxide 26 mmol/L (20-30); Chloride 105 mmol/L (98-107); Eosinophils # (auto) 0.3 10 ^3/uL (0-0.8); Eosinophils % (auto) 2.1 % (0.0-7.0); Glucose 75 mg/dL (74-106); Hematocrit 41.2 % (41.0-53.0); Hemoglobin 13.6 g/dL (13.5-17.5); Lymphocytes # (auto) 1.8 10 ^3/uL (0.4-5.4); Lymphocytes % (auto) 11.5 % (10.0-50.0); Mean Corpuscular Hemoglobin 28.5 pg (28.0-32.0); Mean Corpuscular Hgb Conc. 33.1 g/dL (32.0-36.0); Monocytes # (auto) 0.7 10 ^3/uL (0-1.3); Monocytes % (auto) 4.8 % (0.0-12.0); Neutrophils # (auto) 12.4 10 ^3/uL (1.6-8.6); Potassium 4.1 mmol/L (3.5-5.1); Red Blood Cells 4.79 10^6/uL (4.5-5.90); Red Cell Distribution Width 15.1 % (11.8-14.3); Sodium 137 mmol/L (136-145); Total Protein 8.1 g/dL (5.7-8.2); White Blood Cell 15.3 10^3/uL (4.4-10.8)
[2023-08-16 02:51] LABS: Erythrocyte Sedimentation Rate 23 mm/hr (0-20)
[2023-08-16] MEDS: CLINDAMYCIN 900MG IV 50 ML IV ONE (03:01)
[2023-08-16] MEDS: PIPERACILLIN-TAZOB 3.375GM 100 ML IV ONE (03:07)
[2023-08-16 03:45] VITALS: PULSE 65; RESP 16; O2SAT 96
[2023-08-16] MEDS ORDERED: ONDANSETRON HCL 4 MG/2 ML VIAL IV PRN (04:00)
[2023-08-16] MEDS ORDERED: ACETAMINOPHEN 325 MG TAB PO PRN (04:00)
[2023-08-16] MEDS ORDERED: NITROGLYCERIN 0.4 MG SL TAB SL PRN (04:00)
[2023-08-16] MEDS ORDERED: VANCOMYCIN PER PHARMACY 0 MG IV SCH (04:00)
[2023-08-16] MEDS ORDERED: MORPHINE SULFATE INJ 2 MG/ml SYRG IV PRN (04:00)
[2023-08-16] MEDS ORDERED: DOCUSATE SOD 100 MG CAP PO PRN (04:00)
[2023-08-16] MEDS ORDERED: DEXTROSE (50%) 50ML SYRG IV PRN (04:30)
[2023-08-16 04:57] LABS: Basophils # (auto) 0.2 10 ^3/uL (0-0.2); Basophils % (auto) 1.1 % (0.0-2.0); Eosinophils # (auto) 0.4 10 ^3/uL (0-0.8); Eosinophils % (auto) 3.1 % (0.0-7.0); Hematocrit 38.2 % (41.0-53.0); Hemoglobin 12.6 g/dL (13.5-17.5); Lymphocytes # (auto) 2.1 10 ^3/uL (0.4-5.4); Lymphocytes % (auto) 15.2 % (10.0-50.0); Mean Corpuscular Hemoglobin 28.2 pg (28.0-32.0); Mean Corpuscular Volume 85.5 fL (80.0-100.0); Neutrophils # (auto) 10.3 10 ^3/uL (1.6-8.6); Neutrophils % (auto) 73.6 % (37.0-80.0); Red Blood Cells 4.47 10^6/uL (4.5-5.90); Red Cell Distribution Width 15.3 % (11.8-14.3)
[2023-08-16 05:36] LABS: Alanine Aminotransferase 19 U/L (7-40); Albumin 4.2 g/dL (3.2-4.8); Alkaline Phosphatase 98 U/L (46-116); Anion Gap 5 (5-15); Aspartate Aminotransferase 36 U/L (13-40); BUN/Creatinine Ratio 19.8 (10.0-20.0); Bilirubin, Total 1.3 mg/dL (0.2-1.0); Blood Urea Nitrogen 20 mg/dL (9-23); Calcium 9.4 mg/dL (8.7-10.4); Carbon Dioxide 26 mmol/L (20-30); Chloride 104 mmol/L (98-107); Glucose 116 mg/dL (74-106); Potassium 4.6 mmol/L (3.5-5.1); Sodium 135 mmol/L (136-145); Total Protein 7.3 g/dL (5.7-8.2)
[2023-08-16] MEDS: InsuLIN REG 1unit/0.01ml Soln (100units/ml) SC SCH (07:00)
[2023-08-16] MEDS: MORPHINE SULFATE INJ 2 MG/ml SYRG IV PRN (07:03)
[2023-08-16] MEDS: ACCU-CHEK COMFORT CURVE STRIP VI SCH (07:44)
[2023-08-16 09:00] VITALS: BP 116/59; PULSE 76; RESP 20; TEMP 97.8; O2SAT 99
[2023-08-16] MEDS: ENOXAPARIN SOD 40 MG/0.4 ML SYRINGE SC SCH (10:12)
[2023-08-16] MEDS: HYDROcodone-ACET 5/325MG TAB PO PRN (10:33)
[2023-08-16] MEDS: PIPERACILLIN-TAZOB 3.375GM 100 ML IV SCH (10:36)
[2023-08-16] MEDS: VANCOMYCIN 1GM/200ML 200 ML IV ONE (10:53)
[2023-08-16 13:00] VITALS: BP 138/59; PULSE 71; RESP 18; TEMP 98; O2SAT 99
[2023-08-16 16:34] VITALS: BP 121/66; PULSE 65; RESP 18; TEMP 98.2; O2SAT 98
[2023-08-16] MEDS: VANCOMYCIN 1GM/200ML 200 ML IV SCH (18:09)
[2023-08-16 19:30] VITALS: RESP 18
[2023-08-16 21:00] VITALS: BP 106/65; PULSE 74; RESP 16; TEMP 97.8; O2SAT 100
[2023-08-17] VITALS (7 sets, daily range): BP systolic 106–125; BP diastolic 55–71; PULSE 64–73; RESP 15–18; TEMP 97.3–98.1; O2SAT 97–100
[2023-08-17 06:51] LABS: Basophils # (auto) 0.1 10 ^3/uL (0-0.2); Basophils % (auto) 0.8 % (0.0-2.0); Eosinophils # (auto) 0.8 10 ^3/uL (0-0.8); Eosinophils % (auto) 11.3 % (0.0-7.0); Hematocrit 38.7 % (41.0-53.0); Hemoglobin 12.9 g/dL (13.5-17.5); Lymphocytes # (auto) 2.4 10 ^3/uL (0.4-5.4); Lymphocytes % (auto) 33.3 % (10.0-50.0); Mean Corpuscular Hemoglobin 28.8 pg (28.0-32.0); Mean Corpuscular Hgb Conc. 33.4 g/dL (32.0-36.0); Mean Corpuscular Volume 86.3 fL (80.0-100.0); Monocytes # (auto) 0.6 10 ^3/uL (0-1.3); Monocytes % (auto) 7.9 % (0.0-12.0); Neutrophils # (auto) 3.4 10 ^3/uL (1.6-8.6); Neutrophils % (auto) 46.7 % (37.0-80.0); Nucleated Red Blood Cells % 0.1 %; Red Blood Cells 4.48 10^6/uL (4.5-5.90); Red Cell Distribution Width 15.6 % (11.8-14.3); White Blood Cell 7.4 10^3/uL (4.4-10.8)
[2023-08-17 07:06] LABS: Alanine Aminotransferase 15 U/L (7-40); Alkaline Phosphatase 86 U/L (46-116); Anion Gap 5 (5-15); BUN/Creatinine Ratio 23.7 (10.0-20.0); Blood Urea Nitrogen 18 mg/dL (9-23); Calcium 8.4 mg/dL (8.5-10.1); Carbon Dioxide 25 mmol/L (20-30); Chloride 109 mmol/L (98-107); Glucose 94 mg/dL (74-106); Sodium 139 mmol/L (136-145)
[2023-08-17 07:07] LABS: Albumin 3.8 g/dL (3.2-4.8); Aspartate Aminotransferase 28 U/L (13-40); Bilirubin, Total 0.4 mg/dL (0.2-1.0); Total Protein 6.4 g/dL (5.7-8.2)
[2023-08-17] MEDS: VANCOMYCIN 1GM/200ML 200 ML IV SCH (16:56)
[2023-08-18] VITALS (7 sets, daily range): BP systolic 110–134; BP diastolic 50–80; PULSE 59–104; RESP 16–20; TEMP 97.5–98.7; O2SAT 91–100
[2023-08-18 05:43] LABS: Basophils # (auto) 0 10 ^3/uL (0-0.2); Basophils % (auto) 0.4 % (0.0-2.0); Eosinophils # (auto) 0.5 10 ^3/uL (0-0.8); Eosinophils % (auto) 7.2 % (0.0-7.0); Hematocrit 38.6 % (41.0-53.0); Hemoglobin 12.8 g/dL (13.5-17.5); Lymphocytes # (auto) 1.7 10 ^3/uL (0.4-5.4); Lymphocytes % (auto) 25.1 % (10.0-50.0); Mean Corpuscular Hemoglobin 28.5 pg (28.0-32.0); Mean Corpuscular Hgb Conc. 33.1 g/dL (32.0-36.0); Monocytes # (auto) 0.4 10 ^3/uL (0-1.3); Monocytes % (auto) 6.5 % (0.0-12.0); Neutrophils # (auto) 4.2 10 ^3/uL (1.6-8.6); Neutrophils % (auto) 60.8 % (37.0-80.0); Nucleated Red Blood Cells % 0.1 %; Red Blood Cells 4.49 10^6/uL (4.5-5.90); Red Cell Distribution Width 14.9 % (11.8-14.3)
[2023-08-18 05:54] LABS: Alanine Aminotransferase 14 U/L (7-40); Albumin 3.6 g/dL (3.2-4.8); Alkaline Phosphatase 76 U/L (46-116); Anion Gap 3 (5-15); Aspartate Aminotransferase 21 U/L (13-40); BUN/Creatinine Ratio 15.9 (10.0-20.0); Blood Urea Nitrogen 11 mg/dL (9-23); Calcium 8.9 mg/dL (8.7-10.4); Carbon Dioxide 29 mmol/L (20-30); Chloride 104 mmol/L (98-107); Glucose 87 mg/dL (74-106); Potassium 4.2 mmol/L (3.5-5.1); Sodium 136 mmol/L (136-145)
[2023-08-18 05:55] LABS: Bilirubin, Total 0.3 mg/dL (0.2-1.0); Total Protein 6.3 g/dL (5.7-8.2)
[2023-08-18] MEDS ORDERED: DexAMETHasone SOD PHOS 10MG/1ML VIAL INJ ONE (08:19)
[2023-08-18] MEDS ORDERED: LIDOCAINE 1% INJ PF 5ML AMP ONE (08:19)
[2023-08-18] MEDS ORDERED: KETOROLAC TROMETH 30 MG/ML 1ML VIAL ONE (08:19)
[2023-08-18] MEDS ORDERED: ONDANSETRON HCL 4 MG/2 ML VIAL ONE (08:19)
[2023-08-18] MEDS ORDERED: PROPOFOL 10 MG/ML 20 ML IV ONE ×4 (08:19→10:45)
[2023-08-18] MEDS ORDERED: GLYCOPYRROLATE 0.2 MG/ML 1ML VIAL ONE (08:19)
[2023-08-18] MEDS ORDERED: BUPIVACAINE HCL 0.25% P/F 10 ML VIAL ONE (09:12)
[2023-08-18] MEDS ORDERED: LIDOCAINE 1% HCL (LOCAL ANESTH.) INJ 20ML MDV ONE (09:12)
[2023-08-18] MEDS ORDERED: KETAMINE 50mg/ML 1ml syringe ONE (09:21)
[2023-08-18] MEDS ORDERED: VANCOMYCIN HCL 1000 MG VL ONE ×3 (09:27→10:35)
[2023-08-18] MEDS ORDERED: GENTAMICIN SULFATE 4 ML ONE (09:27)
[2023-08-18] MEDS ORDERED: ONDANSETRON HCL 4 MG/2 ML VIAL IV PRN (11:15)
[2023-08-18] MEDS ORDERED: HYDROmorphone HCL 2 MG/ML VL/or syr IV PRN (11:15)
[2023-08-18] MEDS ORDERED: FLUMAZENIL 0.1 MG/ML INJ 10ML MDV IV PRN (11:15)
[2023-08-18] MEDS ORDERED: fentaNYL CITRATE 100 MCG/2 ML VL IV PRN (11:15)
[2023-08-18] MEDS ORDERED: LABETALOL HCL 5 MG/ML 4ML SYRINGE IV PRN (11:15)
[2023-08-18] MEDS ORDERED: hydrALAZINE HCL 20 MG/ML VL IV PRN (11:15)
[2023-08-18] MEDS ORDERED: ePHEDrine SULFATE 50 MG/ML AMP IV PRN (11:15)
[2023-08-18] MEDS ORDERED: NALOXONE HCL 0.4 MG/ML VIAL IV PRN (11:15)
[2023-08-18] MEDS ORDERED: CEFEPIME 1GM/ 50ML 50 ML IV SCH (22:00)
[2023-08-19] VITALS (8 sets, daily range): BP systolic 107–125; BP diastolic 57–74; PULSE 65–84; RESP 18–20; TEMP 97.5–98.4; O2SAT 97–100
[2023-08-19 05:32] LABS: Basophils # (auto) 0 10 ^3/uL (0-0.2); Basophils % (auto) 0.1 % (0.0-2.0); Eosinophils # (auto) 0 10 ^3/uL (0-0.8); Eosinophils % (auto) 0.1 % (0.0-7.0); Hematocrit 34.3 % (41.0-53.0); Hemoglobin 11.6 g/dL (13.5-17.5); Lymphocytes # (auto) 1.3 10 ^3/uL (0.4-5.4); Lymphocytes % (auto) 10.3 % (10.0-50.0); Mean Corpuscular Hemoglobin 28.8 pg (28.0-32.0); Mean Corpuscular Hgb Conc. 33.7 g/dL (32.0-36.0); Mean Corpuscular Volume 85.4 fL (80.0-100.0); Monocytes # (auto) 0.6 10 ^3/uL (0-1.3); Monocytes % (auto) 4.4 % (0.0-12.0); Neutrophils # (auto) 11.1 10 ^3/uL (1.6-8.6); Neutrophils % (auto) 85.1 % (37.0-80.0); Red Blood Cells 4.02 10^6/uL (4.5-5.90); Red Cell Distribution Width 14.7 % (11.8-14.3); White Blood Cell 13.1 10^3/uL (4.4-10.8)
[2023-08-19 05:41] LABS: Chloride 105 mmol/L (98-107); Potassium 4.1 mmol/L (3.5-5.1); Sodium 136 mmol/L (136-145)
[2023-08-19 05:42] LABS: Anion Gap 4 (5-15); Carbon Dioxide 27 mmol/L (20-30)
[2023-08-19 05:47] LABS: BUN/Creatinine Ratio 23.4 (10.0-20.0); Blood Urea Nitrogen 18 mg/dL (9-23); Glucose 122 mg/dL (74-106)
[2023-08-19 07:53] LABS: INR 1.06 (0.9-1.15); Partial Thromboplastin Time 29.1 SEC (24.5-34.5); Prothrombin Time 11.1 sec (9.3-11.8)
[2023-08-19] MEDS: ERTAPENEM SOD INJ 1 GM in SODIUM CHL 0.9% 50 ML IV SCH (12:15)
[2023-08-19] MEDS ORDERED: cefTRIAXone 1GM/50ML D5W 100 ML IV ONE (22:34)
[2023-08-19] MEDS: cefTRIAXone 2GM/50ML D5W 50 ML IV SCH (22:55)
[2023-08-20] VITALS (8 sets, daily range): BP systolic 96–111; BP diastolic 47–70; PULSE 71–86; RESP 16–20; TEMP 97.6–98; O2SAT 97–99
[2023-08-20 06:41] LABS: Anion Gap 4 (5-15); Carbon Dioxide 26 mmol/L (20-30); Chloride 109 mmol/L (98-107); Potassium 3.8 mmol/L (3.5-5.1); Sodium 139 mmol/L (136-145)
[2023-08-20 06:42] LABS: Calcium 8.5 mg/dL (8.5-10.1)
[2023-08-20 06:47] LABS: BUN/Creatinine Ratio 18.3 (10.0-20.0); Blood Urea Nitrogen 13 mg/dL (9-23); Glucose 108 mg/dL (74-106)
[2023-08-20 07:05] LABS: Basophils # (auto) 0 10 ^3/uL (0-0.2); Basophils % (auto) 0.6 % (0.0-2.0); Eosinophils # (auto) 0.2 10 ^3/uL (0-0.8); Eosinophils % (auto) 3.3 % (0.0-7.0); Hematocrit 37.7 % (41.0-53.0); Hemoglobin 12.7 g/dL (13.5-17.5); Lymphocytes # (auto) 2.7 10 ^3/uL (0.4-5.4); Lymphocytes % (auto) 37.9 % (10.0-50.0); Mean Corpuscular Hemoglobin 29.1 pg (28.0-32.0); Mean Corpuscular Hgb Conc. 33.6 g/dL (32.0-36.0); Mean Corpuscular Volume 86.6 fL (80.0-100.0); Monocytes # (auto) 0.5 10 ^3/uL (0-1.3); Neutrophils # (auto) 3.6 10 ^3/uL (1.6-8.6); Neutrophils % (auto) 51.2 % (37.0-80.0); Red Blood Cells 4.35 10^6/uL (4.5-5.90); White Blood Cell 7.1 10^3/uL (4.4-10.8)
[2023-08-20] MEDS ORDERED: cefTRIAXone 1GM/50ML D5W 0 ML IV ONE (09:09)
[2023-08-21] VITALS (8 sets, daily range): BP systolic 105–132; BP diastolic 44–82; PULSE 62–83; RESP 12–20; TEMP 97.4–98.1; O2SAT 95–100
[2023-08-21 09:11] LABS: Basophils # (auto) 0.1 10 ^3/uL (0-0.2); Basophils % (auto) 0.9 % (0.0-2.0); Eosinophils # (auto) 0.4 10 ^3/uL (0-0.8); Eosinophils % (auto) 6.1 % (0.0-7.0); Hemoglobin 14.1 g/dL (13.5-17.5); Lymphocytes # (auto) 2.2 10 ^3/uL (0.4-5.4); Lymphocytes % (auto) 33.9 % (10.0-50.0); Mean Corpuscular Hemoglobin 28.9 pg (28.0-32.0); Mean Corpuscular Hgb Conc. 33.6 g/dL (32.0-36.0); Mean Corpuscular Volume 85.9 fL (80.0-100.0); Monocytes # (auto) 0.5 10 ^3/uL (0-1.3); Monocytes % (auto) 7.9 % (0.0-12.0); Neutrophils # (auto) 3.3 10 ^3/uL (1.6-8.6); Neutrophils % (auto) 51.2 % (37.0-80.0); Red Blood Cells 4.89 10^6/uL (4.5-5.90); Red Cell Distribution Width 15.3 % (11.8-14.3); White Blood Cell 6.5 10^3/uL (4.4-10.8)
[2023-08-21 09:16] LABS: Chloride 106 mmol/L (98-107); Potassium 4.1 mmol/L (3.5-5.1); Sodium 136 mmol/L (136-145)
[2023-08-21 09:17] LABS: Anion Gap 6 (5-15); Calcium 9.1 mg/dL (8.5-10.1); Carbon Dioxide 24 mmol/L (20-30)
[2023-08-21 09:22] LABS: BUN/Creatinine Ratio 20.3 (10.0-20.0); Blood Urea Nitrogen 13 mg/dL (9-23); Glucose 110 mg/dL (74-106)
== END 2023-08-21 21:20 | disposition left against medical advice (07) | DRG 710 ==
LOC: ER 23:14 → OVERFLOW 08-16 04:27 → WEST WING 08-16 04:27
PROVIDERS: ADMIT Internal Medicine Pulmonary Disease; ATTEND Internal Medicine Pulmonary Disease
PROC: 0QBL0ZZ Excision of Right Tarsal, Open Approach (ICD-10-PCS; principal; 2023-08-18 09:31)
DX: A41.9 Sepsis, unspecified organism (principal); E11.621 Type 2 diabetes mellitus with foot ulcer; L03.115 Cellulitis of right lower limb; L97.412 Non-pressure chronic ulcer of right heel and midfoot with fat layer exposed; Z53.29 Procedure and treatment not carried out because of patient's decision for other reasons; M86.8X7 Other osteomyelitis, ankle and foot; E11.65 Type 2 diabetes mellitus with hyperglycemia; E11.69 Type 2 diabetes mellitus with other specified complication; F15.10 Other stimulant abuse, uncomplicated; Z79.899 Other long term (current) drug therapy; Z79.4 Long term (current) use of insulin
CPT/HCPCS: 36415; 71045; 73620; 73630; 76000; 80048; 80053; 80202; 82962; 83036; 85025; 85610; 85652; 85730; 87040; 87070; 87075; 87077; 87186; 87205; 93005; 96365; 96368; G0378; J1100; J1335; J1885; J2001; J2405; J2543; J2704; J3490

== ENCOUNTER 2023-12-17 04:35 | Emergency (ER) | payer MEDICAID | END 2023-12-17 05:06 | disposition left against medical advice (07) | LOC: ER 04:35 | DX: S01.81XA Laceration without foreign body of other part of head, initial encounter (principal); Z53.21 Procedure and treatment not carried out due to patient leaving prior to being seen by health care provider; X58.XXXA Exposure to other specified factors, initial encounter; Y93.89 Activity, other specified; Y92.89 Other specified places as the place of occurrence of the external cause; Y99.8 Other external cause status ==

== ENCOUNTER 2024-06-18 06:14 | Emergency (ER) | payer MEDICAID ==
[~2024-06-18] VITALS: Ht 175.3 cm; Wt 79.5 kg
--- NOTE | 2024-06-18 06:42 | ED.PDOC ---
History of Present Illness HPI Comments 34 y/o M, KATELYN presents to the ED for CC of overdose. Per EMS, patient was found in a dumpster unresponsive to bystanders; bystanders administered 12 Narcan with no affect. When EMS arrived to scene, patient was given 2.5 Narcan; which the patient responded to. Patient currently complains of chest pain. Patient endorses on, taking fentanyl. Patient relays, that he is currently homeless. Patient smokes tobacco and does illicit street drugs and drinks alcohol. No other symptoms or modifying factors at this time. Time Seen by MD: 06:10 Primary Care Provider: NONE Reviewed Notes: Nurses Notes, Product Support Sales Representative Notes, Medications, Allergies Allergies: Coded Allergies: NO KNOWN ALLERGIES (Unverified , 11/27/21) Home Meds Active Scripts Amoxicillin & Pot Clavulanate (Augmentin) 500 Mg Tab, 1 TAB PO BID for 7 Days, #14 TAB Prov:STEPHIE FLOWER MD 06/18/24 Cephalexin ( Keflex 500) 500 Mg Cap, 1 CAP PO QID for 7 Days, #28 CAP Prov:STEPHIE FLOWER MD 02/12/22 Ibuprofen (Ibuprofen) 800 Mg Tab, 1 TAB PO TID PRN, #30 TAB 0 Refills Prov:HARLEY PRESTON 02/06/22 Levofloxacin Hemihydrate (LEVOFLOXACIN) 750 Mg Tab, 1 TAB PO BID for 7 Days, #14 TAB 0 Refills Prov:HARLEY PRESTON 02/06/22 Aspirin (Aspirin Low Dose) 81 Mg Tab, 162 MG PO DAILY@BREAKFAST, #90 TAB Prov:LAW KAMINSKI MD 02/03/22 Levofloxacin Hemihydrate (LEVOFLOXACIN) 750 Mg Tab, 1 TAB PO DAILY, #14 TAB Prov:ALW KAMINSKI MD 02/03/22 Tramadol Hcl (Tramadol Hcl) 50 Mg Tab, 50 MG PO BID PRN for 5 Days, #10 TAB Prov:LAW KAMINSKI MD 02/03/22 Gabapentin (Gabapentin) 300 Mg Cap, 1 CAP PO TID for 10 Days, #90 CAP 5 Refills Prov:LAW KAMINSKI MD 02/03/22 Ibuprofen (Ibuprofen) 800 Mg Tab, 1 TAB PO TID PRN, #30 TAB 0 Refills Prov:LAW KAMINSKI MD 02/03/22 Information Source: Patient, Emergency Med Personnel Mode of Arrival: EMS Severity: Mild Timing: Hours Duration: Since onset Prehospital treatment: Other (NARCAN) Past Medical History PAST MEDICAL HISTORY: DM Family History Family History: Unknown Social History Smoker: Non-Smoker Alcohol: Occasionally Drugs: Marijuana, Methamphetamine Lives In: Home Constitutional: denies: chills, diaphoresis, fatigue, fever, malaise, sweats, weakness, others EENTM: denies: blurred vision, double vision, ear bleeding, ear discharge, ear drainage, ear pain, ear ringing, eye pain, eye redness, hearing loss, mouth pain, mouth swelling, nasal discharge, nose bleeding, nose congestion, nose pain, photophobia, tearing, throat pain, throat swelling, voice changes, others Respiratory: denies: cough, hemoptysis, orthopnea, SOB at rest, shortness of breath, SOB with excertion, stridor, wheezing, others Cardiovascular: reports: chest pain; denies: dizzy spells, diaphoresis, Dyspnea on exertion, edema, irregular heart beat, left arm pain, lightheadedness, palpitations, PND, syncope, others Gastrointestinal: denies: abdomen distended, abdominal pain, blood streaked bowels, constipated, diarrhea, dysphagia, difficulty swallowing, hematemesis, melena, nausea, poor appetite, poor fluid intake, rectal bleeding, rectal pain, vomiting, others Genitourinary: denies: burning, dysuria, flank pain, frequency, hematuria, incontinence, penile discharge, penile sore, pain, testicle pain, testicle swelling, urgency, others Neurological: denies: dizziness, fainting, headache, left sided numbness, left sided weakness, numbness, paresthesia, pre-existing deficit, right sided numbness, right sided weakness, seizure, speech problems, tingling, tremors, wea kness, others Musculoskeletal: denies: back pain, gout, joint pain, joint swelling, muscle pain, muscle stiffness, neck pain, others Integumetry: denies: bruises, change in color, change in hair/nails, dryness, l aceration, lesions, lumps, rash, wounds, others Allergic/Immunocompromised: denies: Difficulty Healing, Frequent Infections, Hives, Itching, others Hematologic/Lymphatic: denies: anemia, blood clots, easy bleeding, easy bruising, swollen glands, others Endocrine: denies: excessive hunger, excessive sweating, excessive thirst, excessive urination, flushing, intolerance to cold, intolerance to heat, unexplained weight gain, unexplained weight loss, others Psychiatric: denies: anxiety, bipolar disorder, depression, hopeless, panic disorder, schizophrenia, sleepless, suicidal, others All Other Systems: Reviewed and Negative Physical Exam General Appearance: Moderate Distress HEENT: Normal ENT Inspection, Pharynx Normal, TMs Normal Neck: Full Range of Motion, Non-Tender, Normal, Normal Inspection Respiratory: Chest Non-Tender, Lungs Clear, No Accessory Muscle Use, No Respiratory Distress, Normal Breath Sounds Cardiovascular: No Edema, No JVD, No Murmur, No Gallop, Normal Peripheral Pulses, Regular Rate/Rhythm Breast Exam: Deferred Gastrointestinal: No Organomegaly, Non Tender, No Pulsatile Mass, Normal Bowel Sounds, Soft Genitalia: Deferred Pelvic: Deferred Rectal: Deferred Extremities: No calf tenderness, Normal capillary refill, Normal inspection, Normal range of motion, Non-tender, No pedal edema Musculoskeletal : Apperance: Normal Neurologic: Alert, director content marketing II-XII nml as Tested, No Motor Deficits, Normal Affect, Normal Mood, No Sensory Deficits Cerebellar Function: Normal Reflexes: Normal Skin: Dry, Normal Color, Warm Peripheral Pulses: 3+ Radial (R), 3+ Radial (L) Lymphatic: No Adenopathy Was a procedure done? Was a procedure done?: No Differential Dx Considerations may include: DRUG OVERDOSE Electrolyte imbalance X-Ray, Labs, Meds, VS Vital Signs Date Time Temp Pulse Resp B/P (MAP) Pulse Ox O2 Delivery O2 Flow Rate FiO2 06/18/24 12:12 65 12 99 Room Air 06/18/24 12:12 98.3 65 12 112/57 (75) 99 98.3 06/18/24 06:20 97.2 98 22 110/86 (94) 100 06/18/24 06:19 77 Lab Test 06/18/24 06:52 Range/Units White Blood Count 11.5 H 4.4-10.8 10^3/uL Red Blood Count 4.48 L 4.5-5.90 10^6/uL Hemoglobin 13.0 L 13.5-17.5 g/dL Hematocrit 38.2 L 41.0-53.0 % Mean Corpuscular Volume 85.2 80.0-100.0 fL Mean Corpuscular Hemoglobin 29.0 28.0-32.0 pg Mean Corpuscular Hemoglobin Concent 34.1 32.0-36.0 g/dL Red Cell Distribution Width 14.7 H 11.8-14.3 % Platelet Count 393 140-450 10^3/uL Mean Platelet Volume 6.7 L 6.9-10.8 fL Neutrophils (%) (Auto) 79.4 37.0-80.0 % Lymphocytes (%) (Auto) 12.3 10.0-50.0 % Monocytes (%) (Auto) 6.2 0.0-12.0 % Eosinophils (%) (Auto) 1.8 0.0-7.0 % Basophils (%) (Auto) 0.3 0.0-2.0 % Neutrophils # (Auto) 9.1 H 1.6-8.6 10 ^3/uL Lymphocytes # (Auto) 1.4 0.4-5.4 10 ^3/uL Monocytes # (Auto) 0.7 0-1.3 10 ^3/uL Eosinophils # (Auto) 0.2 0-0.8 10 ^3/uL Basophils # (Auto) 0 0-0.2 10 ^3/uL Nucleated Red Blood Cells 0.1 % Sodium Level 142 136-145 mmol/L Potassium Level 4.1 3.5-5.1 mmol/L Chloride Level 107 98-107 mmol/L Carbon Dioxide Level 27 20-31 mmol/L Anion Gap 8 5-15 Blood Urea Nitrogen 13 9-23 mg/dL Creatinine 0.85 0.700-1.30 mg/dL Glomerular Filtration Rate Calc 116 >90 mL/min BUN/Creatinine Ratio 15.3 10.0-20.0 Serum Glucose 67 L 74-106 mg/dL Calcium Level 9.7 8.7-10.4 mg/dL Current Medications Medications (Trade) Dose Ordered Sig/Fabián Route Start Time Stop Time Status Last Admin Sodium Chloride 1,000 ml @ 1,000 mls/hr Q1H ONCE IV 06/18/24 06:45 06/18/24 07:44 DC 06/18/24 10:30 Ceftriaxone Sodium 50 ml @ 100 mls/hr ONCE ONCE IV 06/18/24 10:15 06/18/24 10:44 DC 06/18/24 10:50 Patient found unconscious in the field. Was using fentanyl. Was given Narcan. Vitals stable. After Narcan he did improve. States that he does not want to use drugs anymore. WBC slightly elevated. Possible sinusitis. Was given Rocephin. Was given prescription of Augmentin antibiotic. Tolerating diet. Counseled patient on on effects of taking drugs. Denies suicidal ideation. Denies homicidal ideation. Explained to the patient. Was told to follow up with his primary care physician. Was told to come back if there is any problem. Time of 1ST Reevaluation: 17:22 Reevaluation 1ST: Improved Patient Education/Counseling: Diagnosis, Treatment Family Education/Counseling: No Family Present Departure 1 Departure Time of Disposition: 10:08 Impression: Primary Impression: Metabolic encephalopathy Additional Impression: Drug use Disposition: 01 HOME / SELF CARE / HOMELESS Condition: Good e-Prescriptions Amoxicillin & Pot Clavulanate (Augmentin) 500 Mg Tab 1 TAB PO BID for 7 Days, #14 TAB Prov: STEPHIE FLOWER MD 06/18/24 Discharged With: Self Critical Care Note Critical Care Time?: No Stability Stability form required: No Heart Score Heart Score: Heart Score Response (Comments) Value History N/A 0 EKG N/A 0 Age N/A 0 Risk Factors N/A 0 Troponin N/A 0 Total 0 I personally scribed for STEPHIE FLOWER MD ([email or web address]) on 06/18/24 at 06:42. Electronically submitted by Nathalie Talley ([email or web address]). STEPHIE FLOWER MD Jun 18, 2024 06:42
--- NOTE | 2024-06-18 07:03 | ECG ---
[facility] Test Date: 2024-06-18 Test Time: 06:19:38 Pat Name: LISA GUPTA Department: er Room: Gender: M Funeral Service Manager: : [id number] Requested By: EMERGENCY EMERGENCY Order Number: [id number] Reading MD: Carlos Brian Measurements Intervals [place] Rate: 77 P: 0 DE: 0 QRS: 266 QRSD: 112 T: 62 QT: 389 QTc: 441 Interpretive Statements Accelerated junctional rhythm Borderline intraventricular conduction delay RSR' in V1 or V2, probably normal variant ST elev, probable normal early repol pattern Baseline wander in lead(s) V2 Electronically Signed On 06-18-2024 9:51:44 PST by Carlos Brian Please click the below link to view image of tracing.
[2024-06-18 07:24] LABS: Basophils # (auto) 0 10 ^3/uL (0-0.2); Basophils % (auto) 0.3 % (0.0-2.0); Eosinophils # (auto) 0.2 10 ^3/uL (0-0.8); Eosinophils % (auto) 1.8 % (0.0-7.0); Hematocrit 38.2 % (41.0-53.0); Lymphocytes # (auto) 1.4 10 ^3/uL (0.4-5.4); Lymphocytes % (auto) 12.3 % (10.0-50.0); Mean Corpuscular Hgb Conc. 34.1 g/dL (32.0-36.0); Mean Corpuscular Volume 85.2 fL (80.0-100.0); Monocytes # (auto) 0.7 10 ^3/uL (0-1.3); Monocytes % (auto) 6.2 % (0.0-12.0); Neutrophils # (auto) 9.1 10 ^3/uL (1.6-8.6); Neutrophils % (auto) 79.4 % (37.0-80.0); Nucleated Red Blood Cells % 0.1 %; Platelet Count (auto) 393 10^3/uL (140-450); Red Blood Cells 4.48 10^6/uL (4.5-5.90); Red Cell Distribution Width 14.7 % (11.8-14.3); White Blood Cell 11.5 10^3/uL (4.4-10.8)
[2024-06-18 07:26] LABS: Chloride 107 mmol/L (98-107); Potassium 4.1 mmol/L (3.5-5.1)
[2024-06-18 07:27] LABS: Calcium 9.7 mg/dL (8.7-10.4); Carbon Dioxide 27 mmol/L (20-31)
[2024-06-18 07:32] LABS: BUN/Creatinine Ratio 15.3 (10.0-20.0); Blood Urea Nitrogen 13 mg/dL (9-23)
[2024-06-18 07:39] LABS: Glucose 67 mg/dL (74-106)
[2024-06-18 08:51] LABS: Anion Gap 8 (5-15); Sodium 142 mmol/L (136-145)
[2024-06-18] MEDS ORDERED: AMOX500T86 PO (10:10)
[2024-06-18] MEDS: SODIUM CHLORIDE 0.9% 1,000 ML IV ONE (10:30)
[2024-06-18] MEDS: cefTRIAXone 1GM/50ML D5W 50 ML IV ONE (10:50)
[2024-06-18 12:12] VITALS: BP 112/57; PULSE 65; RESP 12; TEMP 98.3; O2SAT 99
== END 2024-06-18 12:18 | disposition home or self-care (01) ==
LOC: ER 06:14 → EDBD 06:14 → ER 12:18
DX: G93.41 Metabolic encephalopathy (principal); T50.7X1A Poisoning by analeptics and opioid receptor antagonists, accidental (unintentional), initial encounter; E11.9 Type 2 diabetes mellitus without complications; F17.200 Nicotine dependence, unspecified, uncomplicated; F12.10 Cannabis abuse, uncomplicated; F15.10 Other stimulant abuse, uncomplicated; Z59.00 Homelessness unspecified; Z79.82 Long term (current) use of aspirin; Z79.899 Other long term (current) drug therapy; Y92.89 Other specified places as the place of occurrence of the external cause
CPT/HCPCS: 36415; 80048; 85025; 93005; 96365; 99284; J0696; J7030